=== PATIENT | male | born 1970 | race American Indian/Alaskan Native ===

== ENCOUNTER 2022-03-07 18:25 | Emergency (ER) | payer MEDICAID ==
[~2022-03-07] VITALS: Ht 157.5 cm; Wt 90.9 kg
[2022-03-07 18:46] VITALS: BP 122/76
[2022-03-07] MEDS ORDERED: MAX5OPS OP (19:53)
[2022-03-07] MEDS ORDERED: OMEP20TA PO (20:24)
== END 2022-03-07 20:35 | disposition home or self-care (01) ==
LOC: ER 18:25
DX: H10.13 Acute atopic conjunctivitis, bilateral (principal); R60.9 Edema, unspecified